=== PATIENT | male | born 1960 | race Caucasian/White ===

== ENCOUNTER → 2020-08-26 10:13 | Outpatient (CLI) | payer BC, SELFPAY ==
[2020-08-26 11:24] LABS: COVID19 -Nasal RAPID Negative (Negative)
== END ==
PROVIDERS: PCP Family Medicine; Visit Provider Surgery
DX: Z20.822 Contact with and (suspected) exposure to COVID-19 (principal)
CPT/HCPCS: 87635; C9803

== ENCOUNTER 2020-08-28 14:20 | Day surgery (SDC) | payer BC, SELFPAY ==
--- NOTE | 2020-08-28 | PATH_ITS ---
[facility] Accession Number: [id number] . 01 Material submitted: . rectum - RECTAL POLYP . 01 Clinical history: . SCREENING COLONOSCOPY . 02 Diagnosis: Rectal Polyp, Biopsy: Hyperplastic polyp. MRV 09/01/2020 1039 Local . 02 Electronically signed: . Colin Humphries MD, PhD, Pathologist NPI- [id number] . 01 Gross description: . The specimen is received in formalin labeled rectal polyp and consists of three cox-pink fragments of soft tissue, measuring 0.6 x 0.5 x 0.3 cm in aggregate. The specimen is entirely submitted in cassette A1. ([id number]) /[facility] 08/29/2020 1806 Local . 02 Pathologist provided ICD-10: K62.1 . 02 CPT . 440939 Performed at: 01 [facility] [address] [id number] MD Jaden Goode MD Phone: [phone] Performed at: 02 [facility] [address] [place], [place] [id number] MD Patricia Solares MD Phone: [phone]
[2020-08-28 14:37] VITALS: BP 120/76; PULSE 93; RESP 16; TEMP 37.3; O2SAT 94; BMI 35.2
[2020-08-28] MEDS: LACTATED RINGERS 1,000 ML 200 ML IV (14:49)
--- NOTE | 2020-08-28 15:37 | PM.HP.1 ---
History of Present Illness History of Present Illness Date Patient Seen: 08/28/20 Time Patient Seen: 15:38 Chief complaint: SCREENING COLONOSCOPY Narrative: The patient presents for colorectal sreening. Last colonoscopy was 10 years ago and normal. No personal or family history of colon cancer. On further history denies any recent gastrointestinal symptoms. No nausea, vomiting, abdominal pain, loss of appetite, unexplained weight loss, change in bowel habits, diarrhea, constipation, melena, hematochezia, or bright red blood per rectum. Patient History Medical History Hx of fracture of radius Obesity (BMI 30.0-34.9) Tinnitus Surgical History History of rhinoplasty Family & Social History Family History Father Heart disease Mother Diabetes mellitus Brother Diabetes mellitus Grandmother Breast cancer Grandfather Stroke Social History: household members significant other Tobacco & Substance use: Smoking Status Current some day smoker alcohol intake current alcohol intake frequency 0-2 drinks per day Substance Use Type does not use Meds Home Medications and Allergies Home Medications Medication Instructions Recorded Confirmed Type aspirin 81 mg tablet,delayed 81 mg PO DAILY 08/20/20 08/28/20 History release Allergies Allergy/AdvReac Type Severity Reaction Status Date / Time Penicillins Allergy Mild Verified 08/28/20 14:36 Review of Systems Review of Systems ROS: Yes All systems reviewed with the patient and are negative except as otherwise documented Exam Vital Signs (past 8 hours): - 08/28/20 14:37 Temperature 99.1 F Pulse Rate 93 H Respiratory Rate 16 Blood Pressure 120/76 Pulse Oximetry 94 Oxygen Delivery Method Room Air Narrative Exam Narrative: General-no acute distress, well nourished male HEENT-moist mucous membranes, no scleral icterus Neck-supple, no lymphadenopathy Chest- non labored respirations, clear to auscultation bilaterally Cardiac-regular rate no peripheral edema Abdomen-soft, nontender, non distended Extremities-warm, well perfused Neurological-alert and oriented, no focal deficits Assessment & Plan Assessment & Plan narrative: The patient requires colorectal screening and colonoscopy is recommended. Technical details were discussed. Risks, benefits, alternatives explained. Risks including but not limited to myocardial infarction, aspiration, bleeding, pain, missed lesion, incomplete examination, need for further radiographic studies, colonic perforation, and need for major abdominal surgery were discussed. All questions were answered to their satisfaction, and they are in agreement with this plan.
[2020-08-28] MEDS: fentaNYL 250 MCG/5 ML INJ IV (16:00)
[2020-08-28] MEDS: MIDAZOLAM 5 MG/5 ML VIAL IV (16:00)
--- NOTE | 2020-08-28 16:26 | PM.OP.ENDO ---
Operative Date/Time/Diagnoses Date of procedure: 08/28/20 Time of procedure: 16:26 Pre-op diagnosis: screening colonoscopy Post-op diagnosis: same Procedure & Clinicians Study performed: colonoscopy polypectomy Same procedure as scheduled: Yes Indications: 60M here for routine screening colonoscopy Surgeon: Donnie Jeong Procedure Notes Procedure in detail: Medications: Conscious sedation using 5mg IV midazolam and 250mcg IV of fentanyl The history and physical was performed/updated and the patient is ASA class is 1. The procedure was discussed in detail with the patient. Potential risks complications including infection, bleeding, missed diagnosis, perforation, need for surgery, and were explained. Their questions were answered and informed consent was obtained. Patient was brought to the procedure room and placed standard monitoring equipment. The patient's vital signs were monitored continuously throughout the entire procedure. Prior to starting time-out was performed. The patient was placed in the left lateral recumbent position. Procedural sedation was administered. Examination began with a thorough inspection of the perianal area there was no evidence of fissures, fistulae, external hemorrhoids or cutaneous malignancy. The colonoscopy scope was then placed into the anal canal and was advanced to the cecum, which was identified by the ileocecal valve, the appendiceal orifice and the confluence of the taenia. The scope was then slowly withdrawn examining colon thoroughly in all directions, irrigating it of any residual stool. 5 mm rectal polyp removed with biopsy forceps Sigmoid diverticulosis The patient tolerated the procedure well. They will be discharged once criteria are met. The prep was of good/excellent quality. The withdrawl time was 7 minutes. The sedation time was 35 minutes. Specimen(s): other (Rectal polyp) Complications: none Impression: Colonic polyp Post-procedure Recommendations: Colonscopy in 5 years Disposition: same day surgery
[2020-08-28 16:30] VITALS: BP 137/81; PULSE 88; RESP 15; TEMP 36; O2SAT 96
[2020-08-28 16:35] VITALS: BP 116/74; PULSE 88; RESP 12; O2SAT 94
[2020-08-28 16:43] VITALS: BP 116/74; PULSE 92; RESP 13; O2SAT 95
[2020-08-28 16:48] VITALS: BP 121/88; PULSE 86; RESP 15; O2SAT 96
[2020-08-28 16:50] VITALS: BP 118/75; PULSE 84; RESP 15; TEMP 36.4; O2SAT 94
== END 2020-08-28 17:05 | disposition home or self-care (01) ==
PROVIDERS: PCP Family Medicine; Referring Provider Surgery; Visit Provider Surgery
PROC: 0DJD8ZZ Inspection of Lower Intestinal Tract, Via Natural or Artificial Opening Endoscopic (ICD-10-PCS; CPT 45378; principal; 2020-08-28 15:15)
DX: Z12.11 Encounter for screening for malignant neoplasm of colon (principal); E66.9 Obesity, unspecified; F17.210 Nicotine dependence, cigarettes, uncomplicated; K57.30 Diverticulosis of large intestine without perforation or abscess without bleeding; K62.1 Rectal polyp
CPT/HCPCS: 45380; 99152; 99153; J2250; J3010

== ENCOUNTER → 2020-09-04 07:04 | Outpatient (CLI) | payer BC, SELFPAY ==
[2020-09-04 08:09] LABS: Alanine Aminotransferase 41 IU/L (<50); Albumin 4.5 g/dL (3.5-5.0); Albumin Globulin Ratio 1.5 (1.0-2.8); Alkaline Phosphatase 58 U/L (38-126); Aspartate Aminotransferase 38 IU/L (17-59); BUN Creatinine Ratio 18.2 (6-22); Bilirubin Total 0.4 mg/dL (0.2-1.3); Blood Urea Nitrogen 16 mg/dL (9-20); Calcium 9.3 mg/dL (8.4-10.2); Carbon Dioxide 29 mmol/L (22-32); Chloride 102 mmol/L (98-107); Cholesterol 155 mg/dL (140-199); Estimated Glomerular Filt Rate > 60.0 mL/min (>60); Glucose 108 mg/dL (80-110); HDL Cholesterol 33 mg/dL (40-60); HEMOLYSIS < 15 (0-50); Hemoglobin A1C% w Est Avg Glu 5.9 % (4.0-6.0); LDL Cholesterol Calculated 105 mg/dL (<100); Sodium 138 mmol/L (137-145); Total Protein 7.5 g/dL (6.3-8.2); Triglycerides 83 mg/dL (35-150)
[2020-09-04 08:40] LABS: Prostate Specific Antigen Scrn 1.32 ng/mL (0.1-4.0)
== END ==
PROVIDERS: PCP Family Medicine; Referring Provider Family Medicine; Visit Provider Family Medicine
DX: Z00.01 Encounter for general adult medical examination with abnormal findings (principal); E66.9 Obesity, unspecified; Z12.5 Encounter for screening for malignant neoplasm of prostate
CPT/HCPCS: 36415; 80053; 80061; 83036; G0103

== ENCOUNTER → 2020-09-19 15:29 | Outpatient (CLI) | payer BC, SELFPAY ==
[2020-09-19] MEDS: COVID-19 VACC #1, MRNA(MOD) 100 MCG/0.5 ML VIAL IM (15:37)
== END ==
PROVIDERS: PCP Family Medicine; Visit Provider Internal Medicine
DX: Z23 Encounter for immunization (principal)
CPT/HCPCS: 0011A; 91301

== ENCOUNTER → 2020-10-17 15:27 | Outpatient (CLI) | payer BC, SELFPAY ==
[2020-10-17] MEDS: COVID-19 VACC #2, MRNA(MOD) 100 MCG/0.5 ML VIAL IM (15:42)
== END ==
PROVIDERS: PCP Family Medicine; Visit Provider Internal Medicine
DX: Z23 Encounter for immunization (principal)
CPT/HCPCS: 0012A; 91301

== ENCOUNTER → 2021-07-31 16:02 | Outpatient (CLI) | payer BC, SELFPAY ==
--- NOTE | 2021-07-31 16:04 | DI.RAD.S_ITS ---
PROCEDURE: XR KNEE RT 3V INDICATIONS: chronic right knee pain TECHNIQUE: 3 views of the knee were acquired. COMPARISON: None. FINDINGS: Bones: No fractures or dislocations. No suspicious bony lesions. Soft tissues: Small joint effusion. No suspicious soft tissue calcifications. IMPRESSION: Small knee joint effusion; otherwise normal appearance of the right knee. Dictated by: Jose Antonio Pleitez RR Interpreted: Daryn Fink MD on 07/31/2021 at 16:32 Transcribed by: SAMI on 07/31/2021 at 16:33 Approved by: Daryn Fink M.D. on 07/31/2021 at 16:49
[2021-07-31 16:25] LABS: Add Manual Diff / Slide Review NO; Basophils Absolute Auto 0 /uL (0-100); Basophils Percent Auto 0.6 % (0-2); Eosinophils Absolute Auto 400 /uL (0-450); Hematocrit 42.4 % (41-53); Hemoglobin 14.4 g/dL (13.5-17.5); Lymphocytes Absolute Auto 1800 /uL (1100-4500); Lymphocytes Percent Auto 24.5 % (25-40); Mean Corpuscular Hemoglobin 29.9 PG (26-34); Mean Corpuscular Volume 87.8 fL (80-100); Monocytes Absolute Auto 600 /uL (0-900); Monocytes Percent Auto 8.5 % (3-14); Neutrophils Absolute Auto 4500 /uL (1500-7000); Neutrophils Percent Auto 61.4 % (50-75); Platelet Count 260 X10^3/uL (150-400); Red Blood Cell Count 4.83 X10^6/uL (4.5-5.9); White Blood Cell Count 7.4 X10^3/uL (4.5-11.0)
[2021-07-31 16:49] LABS: Alanine Aminotransferase 25 IU/L (<50); Albumin 4.4 g/dL (3.5-5.0); Albumin Globulin Ratio 1.5 (1.0-2.8); Alkaline Phosphatase 57 U/L (38-126); Aspartate Aminotransferase 29 IU/L (17-59); BUN Creatinine Ratio 18.4 (6-22); Bilirubin Total 0.5 mg/dL (0.2-1.3); Blood Urea Nitrogen 18 mg/dL (9-20); Calcium 9.5 mg/dL (8.4-10.2); Carbon Dioxide 32 mmol/L (22-32); Chloride 105 mmol/L (98-107); Cholesterol 154 mg/dL (140-199); Estimated Glomerular Filt Rate > 60.0 mL/min (>60); Glucose 83 mg/dL (80-110); HDL Cholesterol 27 mg/dL (40-60); HEMOLYSIS 17 (0-50); LDL Cholesterol Calculated 96 mg/dL (<100); Potassium 4.5 mmol/L (3.4-5.1); Sodium 140 mmol/L (137-145); Total Protein 7.4 g/dL (6.3-8.2); Triglycerides 155 mg/dL (35-150)
== END ==
PROVIDERS: PCP Family Medicine; Referring Provider Family Medicine; Visit Provider Family Medicine
DX: E66.9 Obesity, unspecified (principal); G47.33 Obstructive sleep apnea (adult) (pediatric); M25.561 Pain in right knee
CPT/HCPCS: 36415; 73562; 80053; 80061; 85025

== ENCOUNTER → 2022-12-10 14:05 | Outpatient (CLI) | payer BC, SELFPAY ==
[2022-12-10 14:48] LABS: Ur Creatinine Normal (Normal); Ur Specific Gravity Normal (Normal); Urine pH Normal (Normal)
[2022-12-10 14:49] LABS: UR Morphine/Opiate cutoff 300 Negative (Negative); Urine Amphetamines Negative (Negative); Urine Barbiturates Negative (Negative); Urine Benzodiazepines Negative (Negative); Urine Cocaine Negative (Negative); Urine MDMA Negative (Negative); Urine Methadone Negative (Negative); Urine Methamphetamines Negative (Negative); Urine Oxycodone Negative (Negative); Urine Phencyclidine Negative (Negative); Urine Tetrahydrocannabinol Negative (Negative); Urine Tricyclic Antidepressant Negative (Negative)
[2022-12-10 15:16] LABS: Alanine Aminotransferase 27 IU/L (<50); Albumin 4.4 g/dL (3.5-5.0); Albumin Globulin Ratio 1.6 (1.0-2.8); Alkaline Phosphatase 70 U/L (38-126); Aspartate Aminotransferase 31 IU/L (17-59); BUN Creatinine Ratio 23.1 (6-22); Bilirubin Total 0.7 mg/dL (0.2-1.3); Blood Urea Nitrogen 25 mg/dL (9-20); Calcium 9.4 mg/dL (8.4-10.2); Carbon Dioxide 24 mmol/L (22-32); Chloride 106 mmol/L (98-107); Estimated Glomerular Filt Rate > 60 mL/min (>60); Ethanol (ETOH) < 10 mg/dL; Globulin 2.8 g/dL (1.7-4.1); Glucose 93 mg/dL (80-110); HEMOLYSIS < 15 (0-50); Potassium 4.3 mmol/L (3.4-5.1); Sodium 139 mmol/L (137-145); Total Protein 7.2 g/dL (6.3-8.2)
[2022-12-10 16:03] LABS: Vitamin B12 222 pg/mL (239-931)
== END ==
PROVIDERS: PCP Family Medicine; Referring Provider Psychiatry & Neurology Psychiatry; Visit Provider Psychiatry & Neurology Psychiatry
DX: F43.23 Adjustment disorder with mixed anxiety and depressed mood (principal); F90.9 Attention-deficit hyperactivity disorder, unspecified type; G47.00 Insomnia, unspecified; F10.10 Alcohol abuse, uncomplicated
CPT/HCPCS: 36415; 80053; 80305; 80320; 82607

== ENCOUNTER → 2023-12-14 13:01 | Outpatient (CLI) | payer BC, SELFPAY ==
[2023-12-14 13:46] LABS: COVID-19 CEPHEID 4-PLEX PCR Negative (Negative); Influenza A - CEPHEID Flu A NEGATIVE (NEGATIVE); Influenza B - CEPHEID Flu B NEGATIVE (NEGATIVE); Respiratory Syncytial Virus Negative (Negative)
== END ==
PROVIDERS: PCP Family Medicine; Visit Provider Student in an Organized Health Care Education/Training Program
DX: R05.1 Acute cough (principal)
CPT/HCPCS: 0241U

== ENCOUNTER → 2023-12-14 13:14 | Outpatient (CLI) | payer BC, SELFPAY ==
--- NOTE | 2023-12-14 13:15 | DI.RAD.S_ITS ---
PROCEDURE: XR CHEST 2V INDICATIONS: cough, low 02 sats, smoking hx distant TECHNIQUE: 2 views of the chest were acquired. COMPARISON: None. FINDINGS: Surgical changes and devices: None. Lungs and pleura: Lungs are clear. No pleural effusions or pneumothorax. Mediastinum: Mediastinal contours are normal. Heart size is normal. Bones and chest wall: No suspicious bony abnormalities. Soft tissues appear unremarkable. IMPRESSION: No acute cardiopulmonary abnormality is seen. Dictated by: Alan Simons M.D. on 12/14/2023 at 14:04 Approved by: Alan Simons M.D. on 12/14/2023 at 14:05
== END ==
PROVIDERS: PCP Family Medicine; Referring Provider Student in an Organized Health Care Education/Training Program; Visit Provider Student in an Organized Health Care Education/Training Program
DX: R05.1 Acute cough (principal); R79.81 Abnormal blood-gas level
CPT/HCPCS: 0241U; 71046

== ENCOUNTER → 2024-04-05 10:59 | Outpatient (CLI) | payer BC, SELFPAY ==
[2024-04-05 12:16] LABS: Add Manual Diff / Slide Review NO; Basophils Absolute Auto 0 /uL (0-100); Basophils Percent Auto 0.8 % (0-2); Eosinophils Absolute Auto 200 /uL (0-450); Eosinophils Percent Auto 3.9 % (2-4); Hematocrit 40.2 % (41-53); Hemoglobin 13.6 g/dL (13.5-17.5); Lymphocytes Absolute Auto 1300 /uL (1100-4500); Lymphocytes Percent Auto 21.7 % (25-40); Mean Corpuscular HGB Conc 33.7 % (30-36); Mean Corpuscular Hemoglobin 29.9 PG (26-34); Mean Corpuscular Volume 88.7 fL (80-100); Monocytes Absolute Auto 500 /uL (0-900); Monocytes Percent Auto 8.6 % (3-14); Neutrophils Absolute Auto 3800 /uL (1500-7000); Platelet Count 230 X10^3/uL (150-400); Red Blood Cell Count 4.54 X10^6/uL (4.5-5.9); Red Cell Distribution Width 14.9 % (11.6-14.8); White Blood Cell Count 5.9 X10^3/uL (4.5-11.0)
[2024-04-05 13:03] LABS: Alanine Aminotransferase 29 IU/L (<50); Albumin 4.4 g/dL (3.5-5.0); Albumin Globulin Ratio 1.8 (1.0-2.8); Alkaline Phosphatase 55 U/L (38-126); Aspartate Aminotransferase 44 IU/L (17-59); BUN Creatinine Ratio 17.8 (6-22); Bilirubin Total 0.6 mg/dL (0.2-1.3); Blood Urea Nitrogen 16 mg/dL (9-20); Calcium 9.4 mg/dL (8.4-10.2); Carbon Dioxide 27 mmol/L (22-32); Chloride 105 mmol/L (98-107); Cholesterol 159 mg/dL (140-199); Estimated Glomerular Filt Rate > 60 mL/min (>60); Globulin 2.4 g/dL (1.7-4.1); Glucose 98 mg/dL (80-110); HDL Cholesterol 43 mg/dL (40-60); HEMOLYSIS < 15 (0-50); LDL Cholesterol Calculated 94 mg/dL (<100); Potassium 4.2 mmol/L (3.4-5.1); Sodium 140 mmol/L (137-145); Total Protein 6.8 g/dL (6.3-8.2); Triglycerides 112 mg/dL (35-150)
[2024-04-05 13:33] LABS: TSH w/ Reflex to FT4 1.12 uIU/mL (0.47-4.68)
[2024-04-05 13:35] LABS: Prostate Specific Antigen Scrn 1.79 ng/mL (0.1-4.0)
[2024-04-05 14:02] LABS: Creatinine Urine Random 93.18 mg/dL
[2024-04-05 14:13] LABS: Microalbumin Urine Random < 0.6 mg/dL (0-1.6)
[2024-04-07 03:14] LABS: Apolipoprotein B 86 mg/dL (<90)
== END ==
LOC: LAB 11:00
PROVIDERS: PCP Family Medicine; Referring Provider Family Medicine; Visit Provider Family Medicine
DX: E66.9 Obesity, unspecified (principal); R07.9 Chest pain, unspecified; N52.9 Male erectile dysfunction, unspecified; R41.840 Attention and concentration deficit; Z12.5 Encounter for screening for malignant neoplasm of prostate; Z82.49 Family history of ischemic heart disease and other diseases of the circulatory system; G47.33 Obstructive sleep apnea (adult) (pediatric)
CPT/HCPCS: 36415; 80053; 80061; 82043; 82172; 82570; 83695; 84443; 85025; G0103

== ENCOUNTER → 2024-04-12 08:35 | Outpatient (CLI) | payer BC, SELFPAY ==
--- NOTE | 2024-04-12 08:36 | DI.US.S_ITS ---
PROCEDURE: US ABD AORTA ANEURYSM SCREEN INDICATIONS: smoking history TECHNIQUE: Real time scanning was performed of the aorta and iliac arteries, with image documentation. COMPARISON: None. FINDINGS: Aorta: Proximal aortic diameter is not well seen due to bowel gas. Mid-aorta measures 2.0 cm. Distal aortic diameter is 1.8 cm. Iliac arteries: Right common iliac artery measures 1.0 cm. Left common iliac artery measures 1.0 cm. IMPRESSION: No aneurysm seen. Dictated by: Mario Agudelo M.D. on 04/12/2024 at 10:10 Approved by: Mario Agudelo M.D. on 04/12/2024 at 10:10
== END ==
LOC: US 08:35
PROVIDERS: PCP Family Medicine; Referring Provider Family Medicine; Visit Provider Family Medicine
DX: Z87.891 Personal history of nicotine dependence (principal); R07.9 Chest pain, unspecified; E66.9 Obesity, unspecified; Z13.6 Encounter for screening for cardiovascular disorders
CPT/HCPCS: 76706

== ENCOUNTER → 2024-04-13 07:32 | Outpatient (CLI) | payer BC, SELFPAY ==
--- NOTE | 2024-04-13 07:33 | DI.NM.S_ITS ---
PROCEDURE: NM BARRON PERF SPECT REST & STR Rest and exercise myocardial perfusion SPECT with gated imaging and ejection fraction RADIOPHARMACEUTICAL: 25.8 mCi Tc-99m sestamibi IV at rest and 25.0 mCi Tc-99m sestamibi IV at peak exercise. A 4-hpc-djskuldn was performed. INDICATIONS: Exertional chest pain TECHNIQUE: Radiopharmaceutical was injected at peak stress test, and also at rest. SPECT images were obtained. SPECT myocardial perfusion images were displayed in short axis, horizontal long axis, and vertical long axis views. Gated images were reviewed using [employer] software. COMPARISON: None. CARDIAC STRESS: A standard Vimal treadmill exercise tolerance test was performed by the patient under the supervision of an attending staff. The patient exercised for 8 minutes and 20 seconds; 10.1 METS; functional aerobic impairment (JONES) is -6%. Hemodynamic data: There is normal blood pressure and heart rate response to exercise stress. Patient achieved 118% of maximum predicted heart rate at peak exercise. Maximum blood pressure 178/96. Symptoms: Patient denied chest pain during exercise. EKG: Rest ECG sinus rhythm 81 bpm, RBBB, LAFB. Exercise ECG sinus tachycardia, no ST segment changes or arrhythmia. FINDINGS: Raw data: There is good myocardial labeling by radiotracer. No significant motion artifacts. Left ventricle function: Gated images demonstrate normal left ventricle wall thickening. No segmental wall motion abnormality. No transient ischemic dilation; TID is 0.96 (normal less than 1.3). The left ventricle resting end-diastolic volume is 112 mL. Left ventricle stress ejection fraction is >75%; normal values are above 45%. Myocardial perfusion: There is normal distribution of activity in the left and right ventricular myocardium. No fixed or reversible perfusion defects. IMPRESSION: Low risk study. No evidence of exercise-induced ischemia on ECG or SPECT imaging. Normal LV size with hyperdynamic function. Normal hemodynamic response. Good exercise capacity. Dictated by: Malena Martinez D.O. on 04/17/2024 at 17:23 Approved by: Malena Martinez D.O. on 04/17/2024 at 17:29
== END ==
LOC: NUCM 07:33
PROVIDERS: PCP Family Medicine; Referring Provider Family Medicine; Visit Provider Family Medicine
DX: R07.9 Chest pain, unspecified (principal); E66.9 Obesity, unspecified
CPT/HCPCS: 78452; 93017; A9502

== ENCOUNTER → 2024-05-11 | Outpatient (CLI) | payer BC, SELFPAY ==
--- NOTE | 2024-05-11 07:12 | DI.ECHO.S_ITS ---
[facility] : : [address] : : [place] : : [id number] : : Phone: [phone] Echocardiogram Report + + :Name: PAULA PEACOCK Study Date: 05/11/2024 Height: 70 in : :[facility] ReadingLocation: Weight: 225 lb : : Gender: Male BSA: 2.2 m2 : :: 1960 Age: 64 yrs BP: 124/88 mmHg: :Reason For Study: EXERTIONAL CHEST PAIN : :Ordering Physician: RICARDO, : :MIKA Performed By: Serina Urbina : :Referring: MIKA SILVA : + + Interpretation Summary Mild LVH. Otherwise, normal echocardiogram. Detailed findings as below. No previous echo images are available for comparison. Procedure: A two-dimensional transthoracic echocardiogram with color flow and Doppler was performed. The study quality was technically adequate. There is no prior echocardiogram noted for this patient. The patient was in sinus rhythm with heart rates between 72-98 bpm during the exam. Left Ventricle: The left ventricle is normal in size. There is mild concentric left ventricular hypertrophy. The ejection fraction is estimated to be 50-55%. Diastolic parameters suggest probable normal left ventricular diastolic function and normal filling pressures. Right Ventricle: The right ventricle is normal in size, thickness and function. The right ventricular systolic function is normal. Atria: The left atrial size is normal. Right atrial size is normal. There is no Doppler evidence for an interatrial shunt. Mitral Valve: The mitral valve is normal in structure and function. There is no mitral regurgitation noted. Aortic Valve: The aortic valve is trileaflet. The aortic valve opens well. There is no aortic valve stenosis. No aortic regurgitation is present. Tricuspid Valve: The tricuspid valve is normal in structure and function. There is trace tricuspid regurgitation. The right ventricular systolic pressure is estimated to be at least 24 mmHg based on an estimated right atrial pressure of 3 mm Hg. Pulmonic Valve: The pulmonic valve leaflets are thin and pliable; valve motion is normal. There is trace pulmonic regurgitation. Great Vessels: The aortic root is normal size. The dimensions of the ascending aorta are normal. The IVC is of normal diameter and collapses greater than 50% with a sniff. This suggests a low right atrial pressure of 3 mm Hg. Pericardium/ Pleura There is no pericardial effusion. There is no pleural effusion. MMode/2D Measurements & Calculations LVIDd: 5.4 cm LVOT diam: 2.2 cm LVIDs: 3.8 cm Ao root diam: 3.1 cm FS: 29.6 % asc Aorta Diam: 3.8 cm EPSS: 0.98 cm Ao Arch Diam (Prox Trans): 3.4 cm IVSd: 1.1 cm LVPWd: 1.1 cm LV sanford. diameter/BSA (cm/m^2): 2.4 LV sys. diameter/BSA (cm/m^2): 1.7 LA A2 area: 20.2 cm2 RA long axis: 5.4 cm LA A4 area: 17.0 cm2 RA area: 15.2 cm2 LA length (vol): 5.0 cm RA vol: 36.6 ml LA vol: 58.1 ml RA : 16.7 ml/m2 LA vol index: 26.5 ml/m2 IVC diam: 1.9 cm RVD1 (basal): 4.1 cm TAPSE: 2.2 cm Doppler Measurements & Calculations Ao V2 max: 124.8 cm/sec LVOT Max Yonas: 107.0 cm/sec Ao V2 mean: 88.6 cm/sec LV V1 max P.6 mmHg Ao max P.2 mmHg LV V1 VTI: 20.1 cm Ao mean P.5 mmHg SAYRA(I,D): 3.0 cm2 Ao V2 VTI: 24.5 cm SAYRA(V,D): 3.2 cm2 sev ratio: 0.82 SAYRA indexed to BSA (cm^2/m^2): 1.4 MV E max yonas: 80.4 cm/sec TR max yonas: 231.2 cm/sec MV A max yonas: 105.4 cm/sec TR max P.4 mmHg MV E/A: 0.76 PA V2 max: 119.1 cm/sec Med Peak E' Yonas: 10.0 cm/sec PA V2 mean: 88.2 cm/sec E/E' med: 8.1 PA mean P.4 mmHg Lat Peak E' Yonas: 8.8 cm/sec PA pr(Accel): 19.1 mmHg E/E' lat: 9.2 E/e' average: 8.6 MV dec time: 0.12 sec [facility]): 74.6 ml Reading Physician:NEHEMIAH
== END ==
PROVIDERS: PCP Family Medicine; Referring Provider Family Medicine; Visit Provider Family Medicine
DX: R07.9 Chest pain, unspecified (principal); E66.9 Obesity, unspecified
CPT/HCPCS: 93306

== ENCOUNTER → 2024-05-21 07:18 | Outpatient (CLI) | payer BC, SELFPAY ==
[2024-05-21 07:42] LABS: Add Manual Diff / Slide Review NO; Basophils Absolute Auto 0 /uL (0-100); Basophils Percent Auto 0.6 % (0-2); Eosinophils Absolute Auto 400 /uL (0-450); Eosinophils Percent Auto 6.6 % (2-4); Hematocrit 42.4 % (41-53); Hemoglobin 14.4 g/dL (13.5-17.5); Lymphocytes Absolute Auto 1800 /uL (1100-4500); Lymphocytes Percent Auto 28.9 % (25-40); Mean Corpuscular HGB Conc 33.9 % (30-36); Mean Corpuscular Volume 88.6 fL (80-100); Monocytes Absolute Auto 500 /uL (0-900); Monocytes Percent Auto 8.3 % (3-14); Neutrophils Absolute Auto 3400 /uL (1500-7000); Neutrophils Percent Auto 55.6 % (50-75); Platelet Count 246 X10^3/uL (150-400); Red Blood Cell Count 4.79 X10^6/uL (4.5-5.9); Red Cell Distribution Width 14.6 % (11.6-14.8); White Blood Cell Count 6.2 X10^3/uL (4.5-11.0)
[2024-05-21 08:08] LABS: BUN Creatinine Ratio 23.6 (6-22); Blood Urea Nitrogen 21 mg/dL (9-20); Calcium 9.4 mg/dL (8.4-10.2); Carbon Dioxide 28 mmol/L (22-32); Chloride 104 mmol/L (98-107); Estimated Glomerular Filt Rate > 60 mL/min (>60); Glucose 105 mg/dL (80-110); HEMOLYSIS < 15 (0-50); Potassium 4.3 mmol/L (3.4-5.1); Sodium 138 mmol/L (137-145)
== END ==
PROVIDERS: PCP Family Medicine; Referring Provider Internal Medicine Cardiovascular Disease; Visit Provider Internal Medicine Cardiovascular Disease
DX: I25.10 Atherosclerotic heart disease of native coronary artery without angina pectoris (principal)
CPT/HCPCS: 36415; 80048; 85025

== ENCOUNTER → 2024-07-11 10:08 | Outpatient (CLI) | payer BC, SELFPAY ==
[2024-07-11 11:05] LABS: Influenza A - CEPHEID Flu A NEGATIVE (NEGATIVE); Influenza B - CEPHEID Flu B NEGATIVE (NEGATIVE); Respiratory Syncytial Virus Negative (Negative)
[2024-07-11 11:06] LABS: COVID-19 CEPHEID 4-PLEX PCR POSITIVE (Negative)
== END ==
PROVIDERS: PCP Family Medicine; Visit Provider Physician Assistant Surgical
DX: R05.1 Acute cough (principal)
CPT/HCPCS: 0241U

== ENCOUNTER → 2024-07-11 10:23 | Outpatient (CLI) | payer BC, SELFPAY ==
--- NOTE | 2024-07-11 10:24 | DI.RAD.S_ITS ---
PROCEDURE: XR CHEST 2V INDICATIONS: Cough, HALL TECHNIQUE: 2 views of the chest were acquired. COMPARISON: [facility], CR, XR CHEST 2V, 12/14/2023, 13:22. FINDINGS: Surgical changes and devices: None. Lungs and pleura: Lungs are clear. No pleural effusions or pneumothorax. Mediastinum: Mediastinal contours are normal. Heart size is normal. Bones and chest wall: No suspicious bony abnormalities. Soft tissues appear unremarkable. IMPRESSION: No acute cardiopulmonary abnormality is seen. Dictated by: Alan Simons M.D. on 07/11/2024 at 10:58 Approved by: Alan Simons M.D. on 07/11/2024 at 10:58
== END ==
PROVIDERS: PCP Family Medicine; Referring Provider Physician Assistant Surgical; Visit Provider Physician Assistant Surgical
DX: R05.1 Acute cough (principal)
CPT/HCPCS: 0241U; 71046

== ENCOUNTER → 2025-04-12 11:05 | Outpatient (CLI) | payer MEDICARE, SELFPAY ==
[2025-04-12 12:31] LABS: Cholesterol 134 mg/dL (140-199); HDL Cholesterol 54 mg/dL (40-60); Triglycerides 69 mg/dL (35-150)
== END ==
PROVIDERS: PCP Family Medicine; Referring Provider Internal Medicine Cardiovascular Disease; Visit Provider Internal Medicine Cardiovascular Disease
DX: I25.10 Atherosclerotic heart disease of native coronary artery without angina pectoris (principal); I25.83 Coronary atherosclerosis due to lipid rich plaque
CPT/HCPCS: 36415; 80061

== ENCOUNTER → 2025-04-23 15:03 | Outpatient (CLI) | payer MEDICARE, SELFPAY ==
[2025-04-23 15:30] LABS: Add Manual Diff / Slide Review NO; Hematocrit 41.1 % (41-53); Hemoglobin 14.2 g/dL (13.5-17.5); Lymphocytes Absolute Auto 1700 /uL (1100-4500); Mean Corpuscular HGB Conc 34.5 % (30-36); Mean Corpuscular Hemoglobin 30.8 PG (26-34); Mean Corpuscular Volume 89.3 fL (80-100); Platelet Count 254 X10^3/uL (150-400)
[2025-04-23 15:56] LABS: Alanine Aminotransferase 26 IU/L (<50); Albumin 4.6 g/dL (3.5-5.0); Albumin Globulin Ratio 1.7 (1.0-2.8); Alkaline Phosphatase 67 U/L (38-126); Blood Urea Nitrogen 18 mg/dL (9-20); Calcium 9.6 mg/dL (8.4-10.2); Carbon Dioxide 26 mmol/L (22-32); Chloride 102 mmol/L (98-107); Estimated Glomerular Filt Rate > 60 mL/min (>60); Globulin 2.7 g/dL (1.7-4.1); Glucose 91 mg/dL (70-99); HEMOLYSIS < 15 (0-50); Potassium 4.0 mmol/L (3.4-5.1); Sodium 137 mmol/L (137-145); Total Protein 7.3 g/dL (6.3-8.2)
[2025-04-23 16:30] LABS: TSH w/ Reflex to FT4 0.95 uIU/mL (0.47-4.68)
== END ==
PROVIDERS: PCP Family Medicine; Referring Provider Family Medicine; Visit Provider Family Medicine
DX: I25.10 Atherosclerotic heart disease of native coronary artery without angina pectoris (principal); Z12.5 Encounter for screening for malignant neoplasm of prostate; G47.33 Obstructive sleep apnea (adult) (pediatric); E66.9 Obesity, unspecified; I45.10 Unspecified right bundle-branch block; N52.9 Male erectile dysfunction, unspecified
CPT/HCPCS: 36415; 80053; 84443; 85025; G0103